=== PATIENT | male | born 1940 | race Caucasian/White ===

== ENCOUNTER 2024-07-11 09:18 | Inpatient (IN) ==
[2024-07-11 10:32] LABS: Basophils # (Auto) 0.04 K/mcL (0.00-0.30); Basophils % (Auto) 0.9 % (0.0-2.0); Eosinophils % (Auto) 4.4 % (0.0-7.0); Hematocrit 37.6 % (40.1-51.0); Hemoglobin 11.8 g/dL (13.7-17.5); Lymphocytes # (Auto) 1.21 K/mcL (1.50-4.80); Lymphocytes % (Auto) 26.4 % (15.5-49.0); Mean Corpuscular HGB Conc 31.4 g/dL (31.0-36.0); Mean Platelet Volume 10.5 fL (8.8-12.5); Monocytes # (Auto) 0.44 K/mcL (0.10-0.90); Monocytes % (Auto) 9.6 % (1.0-12.0); Neutrophils % (Auto) 58.7 % (38.0-78.0); Platelet Count 91 K/mcL (140-440); RBC 3.65 M/mcL (4.63-6.08); Red Cell Distribution Width 15.5 % (11.5-14.5); WBC 4.6 K/mcL (4.5-11.0)
[2024-07-11 10:45] LABS: INR 1.3 (0.9-1.1)
[2024-07-11 10:52] LABS: ALT/SGPT 8 U/L (<40); AST/SGOT 31 U/L (<40); Albumin 3.9 gm/dL (3.2-5.2); Albumin/Globulin Ratio 1.4 (1.0-2.3); Alkaline Phosphatase 106 U/L (39-117); Bilirubin,Total 1.4 mg/dL (0.1-1.0); Blood Urea Nitrogen 20 mg/dL (8-23); Calcium 9.7 mg/dL (8.6-10.4); Carbon Dioxide 23 mmol/L (22-30); Chloride 106 mmol/L (96-108); Globulin 2.8 gm/dL (2.2-3.7); Glomerular Filtration Rate 54; Glucose 96 mg/dL (70-105); Potassium 3.7 mmol/L (3.3-5.1); Sodium 144 mmol/L (133-145); Thyroid Stimulating Hormone 2.82 uIU/mL (0.27-5.01)
[2024-07-11 11:23] LABS: Free T4 (Free Thyroxine) 1.16 ng/dL (0.93-1.70)
[2024-07-11] MEDS: FUROSEMIDE 40 MG/4 ML VIAL IV ONE (11:29)
[2024-07-11 12:54] LABS: Appearance,Urine Clear (Clear); Bacteria,Urine 0 /hpf (0); Bilirubin,Urine Negative (Negative); Color,Urine Yellow; Culture Indicated,Urine No; Glucose,Urine (UA) Negative (Negative); Ketones,Urine Trace mg/dL (Negative); Leukocyte Esterase,Urine Negative /uL (Negative); Mucus,Urine Mod /hpf; Nitrate,Urine Negative (Negative); PH,Urine 5.5 (5.0-9.0); Protein,Urine Trace mg/dL (Negative); Urine Blood Negative ery/mcL (Negative); Urine Hyaline Cast 15 /lph (0-2); Urine RBC 1 /hpf (0-3); Urine Squamous Epithelial Cell 0 /hpf (0-4); Urine WBC 0 /hpf (0-4)
[2024-07-11] MEDS ORDERED: POTASSIUM CHLORIDE 40 MEQ in DEXTROSE 5% IN WATER 500 ML IV PRN (15:29)
[2024-07-11] MEDS ORDERED: IPRATROPIUM/ALBUTEROL 3 ML AMPUL.NEB NEB PRN (15:29)
[2024-07-11] MEDS ORDERED: POTASSIUM CHLORIDE 20 MEQ TABLET PO PRN (15:29)
[2024-07-11] MEDS ORDERED: MAGNESIUM SULFATE 2 GM/50 ML BAG IV PRN (15:29)
[2024-07-11] MEDS ORDERED: SENNOSIDES 1 TABLET PO PRN (15:29)
[2024-07-11] MEDS ORDERED: DEXTROSE 50% 50 ML VIAL IV PRN (15:29)
[2024-07-11] MEDS ORDERED: METOPROLOL TARTRATE 5 MG/5 ML VIAL IV PRN (15:29)
[2024-07-11] MEDS ORDERED: DEXTROSE 31 GM ORAL.SUSP PO PRN (15:29)
[2024-07-11] MEDS ORDERED: ONDANSETRON 4 MG/2 ML VIAL IV PRN (15:29)
[2024-07-11] MEDS: INSULIN LISPRO 1 UNIT/0.01 ML UNIT SQ SCH (16:50)
[2024-07-11] MEDS: FUROSEMIDE 40 MG/4 ML VIAL IV SCH (16:52)
[2024-07-11] MEDS: DOCUSATE SODIUM 100 MG CAPSULE PO SCH (21:18)
[2024-07-11] MEDS: GABAPENTIN 400 MG CAPSULE PO SCH (21:18)
[2024-07-11] MEDS: CARBIDOPA/LEVODOPA 25/100 TABLET PO SCH (21:18)
[2024-07-11] MEDS: clonazePAM 0.5 MG TABLET PO SCH (21:19)
[2024-07-11] MEDS: OMEPRAZOLE 20 MG CAPSULE PO SCH (21:20)
[2024-07-11] MEDS: 0.9 % SODIUM CHLORIDE 10 ML SYRINGE IV SCH (21:21)
[2024-07-12 07:00] LABS: ALT/SGPT 5 U/L (<40); AST/SGOT 30 U/L (<40); Albumin 3.5 gm/dL (3.2-5.2); Albumin/Globulin Ratio 1.6 (1.0-2.3); Alkaline Phosphatase 99 U/L (39-117); Bilirubin,Direct 0.7 mg/dL (<0.3); Bilirubin,Total 1.7 mg/dL (0.1-1.0); Blood Urea Nitrogen 17 mg/dL (8-23); Carbon Dioxide 27 mmol/L (22-30); Chloride 106 mmol/L (96-108); Globulin 2.2 gm/dL (2.2-3.7); Glomerular Filtration Rate 68; Glucose 76 mg/dL (70-105); Lactate Dehydrogenase 216 U/L (135-225); Phosphorous 3.5 mg/dL (2.5-4.5); Potassium 3.2 mmol/L (3.3-5.1); Sodium 146 mmol/L (133-145); Triglycerides 50 mg/dL (<150); Uric Acid 7.2 mg/dL (2.5-8.0)
[2024-07-12 07:09] LABS: Hematocrit 35.6 % (40.1-51.0); Hemoglobin 11.4 g/dL (13.7-17.5); Mean Cell Volume 102.9 fL (80.0-100.0); Mean Platelet Volume 10.9 fL (8.8-12.5); Platelet Count 88 K/mcL (140-440); RBC 3.46 M/mcL (4.63-6.08); Red Cell Distribution Width 15.3 % (11.5-14.5); WBC 4.4 K/mcL (4.5-11.0)
[2024-07-12 07:21] LABS: Eosinophils % (Manual) 3 % (0-7); Lymphocytes % 34 % (15-49); Monocytes % (Manual) 9 % (1-12); Platelet Estimate DECREASED (Normal); Poikilocytosis 2+ (None Seen); RBC Morphology ABNORMAL (Normal); Segmented Neutrophils % 54 % (38-78)
[2024-07-12] MEDS: LEVOTHYROXINE 50 MCG TABLET PO SCH (07:57)
[2024-07-12] MEDS: ENOXAPARIN 40 MG/0.4 ML SYRINGE SQ SCH (08:49)
[2024-07-12] MEDS: ATORVASTATIN 40 MG TABLET PO SCH (08:49)
[2024-07-12] MEDS: TAMSULOSIN 0.4 MG CAPSULE PO SCH (08:49)
[2024-07-12] MEDS: ASPIRIN 81 MG TAB.CHEW PO SCH (08:49)
[2024-07-12] MEDS: HYDROCHLOROTHIAZIDE 25 MG TABLET PO SCH (08:49)
[2024-07-12] MEDS: POTASSIUM CHLORIDE 20 MEQ TABLET PO PRN (08:49)
[2024-07-12] MEDS: OLMESARTAN MEDOXOMIL 20 MG TABLET PO SCH (08:49)
[2024-07-12] MEDS: BISOPROLOL 5 MG TABLET PO SCH (11:26)
[2024-07-12] MEDS: clonazePAM 0.5 MG TABLET PO SCH (20:11)
[2024-07-13 06:03] LABS: Basophils # (Auto) 0.04 K/mcL (0.00-0.30); Basophils % (Auto) 0.6 % (0.0-2.0); Eosinophils # (Auto) 0.13 K/mcL (0.00-0.70); Hematocrit 38.7 % (40.1-51.0); Hemoglobin 12.2 g/dL (13.7-17.5); Lymphocytes # (Auto) 1.42 K/mcL (1.50-4.80); Lymphocytes % (Auto) 21.4 % (15.5-49.0); Mean Cell Volume 102.4 fL (80.0-100.0); Mean Corpuscular HGB Conc 31.5 g/dL (31.0-36.0); Mean Platelet Volume 10.1 fL (8.8-12.5); Monocytes # (Auto) 1.06 K/mcL (0.10-0.90); Neutrophils % (Auto) 59.8 % (38.0-78.0); Platelet Count 81 K/mcL (140-440); RBC 3.78 M/mcL (4.63-6.08); Red Cell Distribution Width 15.5 % (11.5-14.5); WBC 6.6 K/mcL (4.5-11.0)
[2024-07-13 06:41] LABS: ALT/SGPT < 5 U/L (<40); AST/SGOT 29 U/L (<40); Albumin 3.5 gm/dL (3.2-5.2); Albumin/Globulin Ratio 1.3 (1.0-2.3); Alkaline Phosphatase 100 U/L (39-117); Bilirubin,Direct 0.8 mg/dL (<0.3); Blood Urea Nitrogen 16 mg/dL (8-23); Calcium 9.3 mg/dL (8.6-10.4); Carbon Dioxide 28 mmol/L (22-30); Chloride 100 mmol/L (96-108); Globulin 2.7 gm/dL (2.2-3.7); Glomerular Filtration Rate 68; Glucose 129 mg/dL (70-105); Lactate Dehydrogenase 217 U/L (135-225); Phosphorous 2.9 mg/dL (2.5-4.5); Potassium 3.7 mmol/L (3.3-5.1); Sodium 138 mmol/L (133-145); Triglycerides 50 mg/dL (<150)
[2024-07-13] MEDS: FUROSEMIDE 40 MG/4 ML VIAL IV ONE (09:49)
[2024-07-13] MEDS: HYDROCHLOROTHIAZIDE 25 MG TABLET PO ONE (09:49)
[2024-07-13] MEDS: ACETAMINOPHEN 325 MG TABLET PO PRN (19:54)
[2024-07-14 07:32] LABS: ALT/SGPT 6 U/L (<40); AST/SGOT 25 U/L (<40); Albumin 3.5 gm/dL (3.2-5.2); Albumin/Globulin Ratio 1.5 (1.0-2.3); Alkaline Phosphatase 100 U/L (39-117); Bilirubin,Direct 0.9 mg/dL (<0.3); Bilirubin,Total 2.3 mg/dL (0.1-1.0); Blood Urea Nitrogen 19 mg/dL (8-23); Carbon Dioxide 28 mmol/L (22-30); Chloride 97 mmol/L (96-108); Globulin 2.3 gm/dL (2.2-3.7); Glomerular Filtration Rate 68; Glucose 123 mg/dL (70-105); Lactate Dehydrogenase 194 U/L (135-225); Potassium 3.5 mmol/L (3.3-5.1); Sodium 135 mmol/L (133-145); Triglycerides 41 mg/dL (<150)
[2024-07-14] MEDS: POLYETHYLENE GLYCOL 3350 17 GM PACKET PO PRN (08:03)
[2024-07-14] MEDS: FUROSEMIDE 40 MG TABLET PO SCH (10:53)
[2024-07-15 08:59] LABS: ALT/SGPT 7 U/L (<40); AST/SGOT 39 U/L (<40); Albumin 3.7 gm/dL (3.2-5.2); Albumin/Globulin Ratio 1.4 (1.0-2.3); Alkaline Phosphatase 109 U/L (39-117); Bilirubin,Direct 1.1 mg/dL (<0.3); Bilirubin,Total 2.2 mg/dL (0.1-1.0); Blood Urea Nitrogen 18 mg/dL (8-23); Calcium 9.5 mg/dL (8.6-10.4); Carbon Dioxide 31 mmol/L (22-30); Chloride 97 mmol/L (96-108); Globulin 2.6 gm/dL (2.2-3.7); Glomerular Filtration Rate 68; Glucose 115 mg/dL (70-105); Lactate Dehydrogenase 228 U/L (135-225); Potassium 3.8 mmol/L (3.3-5.1); Sodium 137 mmol/L (133-145); Triglycerides 55 mg/dL (<150); Uric Acid 5.5 mg/dL (2.5-8.0)
[2024-07-15] MEDS: LACTATED RINGERS 1,000 ML IV SCH (20:05)
[2024-07-16 07:43] LABS: ALT/SGPT < 5 U/L (<40); AST/SGOT 30 U/L (<40); Albumin 3.3 gm/dL (3.2-5.2); Albumin/Globulin Ratio 1.1 (1.0-2.3); Alkaline Phosphatase 105 U/L (39-117); Basophils # (Auto) 0.04 K/mcL (0.00-0.30); Basophils % (Auto) 0.8 % (0.0-2.0); Bilirubin,Total 1.6 mg/dL (0.1-1.0); Blood Urea Nitrogen 18 mg/dL (8-23); Calcium 9.6 mg/dL (8.6-10.4); Carbon Dioxide 30 mmol/L (22-30); Chloride 101 mmol/L (96-108); Eosinophils # (Auto) 0.28 K/mcL (0.00-0.70); Eosinophils % (Auto) 5.6 % (0.0-7.0); Globulin 3.1 gm/dL (2.2-3.7); Glomerular Filtration Rate 77; Glucose 94 mg/dL (70-105); Hematocrit 38.4 % (40.1-51.0); Hemoglobin 12.5 g/dL (13.7-17.5); Lymphocytes # (Auto) 1.18 K/mcL (1.50-4.80); Lymphocytes % (Auto) 23.5 % (15.5-49.0); Mean Cell Volume 100.5 fL (80.0-100.0); Mean Corpuscular HGB Conc 32.6 g/dL (31.0-36.0); Mean Platelet Volume 10.6 fL (8.8-12.5); Monocytes # (Auto) 0.59 K/mcL (0.10-0.90); Monocytes % (Auto) 11.8 % (1.0-12.0); Neutrophils % (Auto) 58.1 % (38.0-78.0); Platelet Count 113 K/mcL (140-440); RBC 3.82 M/mcL (4.63-6.08); Red Cell Distribution Width 14.4 % (11.5-14.5); Sodium 140 mmol/L (133-145)
== END 2024-07-16 15:40 | DRG 291 ==
LOC: ED 09:18 → MEDSUR 15:14
PROVIDERS: ADMIT Internal Medicine; ATTEND Internal Medicine